=== PATIENT | female | born 1970 | race African-American/Black ===

== ENCOUNTER 2021-11-16 13:10 | Emergency (ER) | payer MEDICAID, OTHER ==
[~2021-11-16] VITALS: Ht 170.2 cm; Wt 113.5 kg
[2021-11-16] MEDS ORDERED: ACETAMINOPHEN WITH CODEINE 300/30MG TABLET PO STA (13:37)
[2021-11-16 14:12] LABS: BASOPHILS % 0.7 % (0.0-2.0); EOSINOPHILS % 1.1 % (0.0-5.0); HEMATOCRIT. 40.5 % (36.0-48.0); HEMOGLOBIN. 13.3 g/dL (12.0-16.0); LYMPHOCYTES % 36.8 % (20.0-50.0); MEAN CORPUSCULAR HEMOGLOBIN 30.7 pg (28.0-32.0); MEAN CORPUSCULAR VOLUME 93.2 fL (81.0-99.0); MEAN PLATELET VOLUME 9.7 fl (7.4-10.4); MONOCYTES % 6.2 % (2.0-8.0); NEUTROPHILS % 55.2 % (40.0-76.0); PLATELET 242 x1000/uL (130-400); RED BLOOD CELL COUNT 4.34 mill/uL (4.2-5.4)
[2021-11-16 14:20] LABS: CHLORIDE 108 mEq/L (98-107)
[2021-11-16 16:54] LABS: HCG SCREEN NEGATIVE
[2021-11-16] MEDS ORDERED: AMLO2.5T2 MT (18:49)
[2021-11-16 19:29] VITALS: BP 168/95
== END 2021-11-16 19:29 | disposition home or self-care (01) ==
LOC: ER 13:18
DX: R51.9 Headache, unspecified (principal); I16.0 Hypertensive urgency
CPT/HCPCS: 36415; 70551; 80053; 84703; 85025; 93005; 99285